=== PATIENT | female | born 1965 | race Caucasian/White ===

== ENCOUNTER 2019-01-07 17:23 | Emergency (ER) | payer OTHER ==
[2019-01-07 17:36] VITALS: BP 109/60; PULSE 93; TEMP 98.6; BMI 25.0
--- NOTE | 2019-01-07 18:10 | PDOC ---
History of Present Illness - General Chief Complaint: Pain Stated Complaint: LEFT TOE PAIN Time Seen by Provider: 01/07/19 17:58 - History of Present Illness Initial Comments: 01/07/19 18:06 53-year-old female without comorbidities presents for evaluation of left great toe pain 3 days. She states on Monday she went for a pedicure, 12 hours later her toe began to suddenly hurt and it's been like that ever since. She has no fevers or systemic symptoms. She has no malaise. Past History - Past Medical History Allergies/Adverse Reactions: Allergies Allergy/AdvReac Type Severity Reaction Status Date / Time No Known Allergies Allergy Verified 01/07/19 17:37 Home Medications: Ambulatory Orders Methylprednisolone [Medrol Dose Robin] 4 mg PO ASDIR #21 tablet 01/07/19 COPD: No - Suicide/Smoking/Psychosocial Hx Smoking History: Never smoked Hx Alcohol Use: Yes (OCCASIONALLY) Drug/Substance Use Hx: No Review of Systems - Review of Systems Constitutional: No: Chills, Fever, Malaise, Night Sweats Musculoskeletal: Yes: Joint Pain *Physical Exam - Vital Signs Last Vital Signs Temp Pulse Resp BP Pulse Ox 98.6 F 93 H 16 109/60 99 01/07/19 17:33 01/07/19 17:33 01/07/19 17:33 01/07/19 17:33 01/07/19 17:33 - Physical Exam Comments: 01/07/19 18:07 There is minimal erythema at the right first MTPJ, mild warmth. Mild pain with passive motion. There is no induration or fluctuance. No appreciable effusion. No gross sensorimotor deficits. She is neurovascularly intact. Medical Decision Making - Medical Decision Making 01/07/19 18:07 I've taken a thorough history, the patient's pain came on suddenly 12 hours after her pedicure. Her pain is remain the same and not worsened since the onset of her symptoms. This is gout not infection. I do not believe this to be a cellulitis and I do not think the patient requires antibiotics. I will treat her with a Medrol Dosepak and follow-up with rheumatology with strict instructions to return to the emergency room should symptoms worsen. *DC/Admit/Observation/Transfer Diagnosis at time of Disposition: Gout attack - Discharge Dispostion Disposition: HOME Condition at time of disposition: Stable Decision to Admit order: No - Prescriptions Prescriptions: Methylprednisolone [Medrol Dose Robin] 4 mg PO ASDIR #21 tablet - Referrals Referrals: Jame Quispe [Non Staff, Medical] - William Rankin MD [Non Staff, Medical] - Margot Moran MD [Non Staff, Medical] - Miki Graff MD [Non Staff, Medical] - Antonina Lares MD [Non Staff, Medical] - Marshall Mauricio MD [Staff Physician] - Nidhi Robins MD [Non Staff, Medical] - Kaz Tolliver MD [Non Staff, Medical] - Mckinley Brewer MD [Non Staff, Medical] - Eric Ge MD [Non Staff, Medical] - Joie Childers MD [Non Staff, Medical] - Barber Varner [Non Staff, Medical] - Christophe Garcia [Non Staff, Medical] - Julianna Garcia MD [Staff Physician] - - Patient Instructions Printed Discharge Instructions: DI for Gout, Higher Vitamin C Intake Associated With Lower Risk of Gout, Gout Additional Instructions: Please take the Medrol Dosepak as directed. Follow-up with rheumatology in the next 1-2 days for further evaluation and treatment options. 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 And return to the emergency room should symptoms worsen or go unresolved. Do not take any anti-inflammatory such as Advil Motrin ibuprofen or Aleve while on the Medrol Dosepak. If she needed additional pain medication you may take Tylenol as directed. - Post Discharge Activity
[2019-01-07] MEDS ORDERED: ACETAMINOPHEN 500 MG TABLET (FP) PO ONE (18:13)
[2019-01-07] MEDS ORDERED: ACETAMINOPHEN 500 MG TABLET (FP) ONE (18:15)
== END 2019-01-07 18:22 | disposition home or self-care (01) ==
LOC: JERFT 17:23
DX: M10.9 Gout, unspecified (principal)
CPT/HCPCS: 99281-25